=== PATIENT | female | born 1935 | race Hispanic/Latino ===

== ENCOUNTER 2018-08-07 18:44 | Inpatient (IN) | payer MEDICARE ==
[2018-08-07 19:15] LABS: #Eosinphils 0.1 thou/uL (0.0-0.7); #Lymphocytes 0.9 thou/uL (1.20-3.40); #Monocytes 0.5 thou/uL (0.11-0.59); #Neutrophils 5.4 thou/uL (1.40-6.50); %Basophils 0.6 % (0.0-1.0); %Eosinophils 2.2 % (0.0-10.0); %Lymphocytes 12.5 % (21.0-51.0); %Neutrophils 77.8 % (42.0-75.0); Hemoglobin 12.6 g/dL (12.0-16.0); Mean Corpuscular HGB CONC 32.7 g/dL (32.0-36.0); Mean Corpuscular Hemoglobin 32.1 pg (27.0-31.0); Mean Corpuscular Volume 98.2 fL (78.0-98.0); Mean Platelet Volume 7.6 fL (7.4-10.4); Platelet Count 224 thou/uL (130-400); RBC Distribution Width 14.2 % (11.5-14.5); Red Blood Cell (RBC) Count 3.93 mill/uL (4.20-5.40); White Blood Cell (WBC) Count 6.9 thou/uL (4.8-10.8)
[2018-08-07 19:21] LABS: PTT 26.1 SEC (22.9-36.1); Prothrombin Time 13.3 SEC (12.0-14.7)
--- NOTE | 2018-08-07 19:24 | CT ---
EXAM: Brain CT scan Without contrast: HISTORY: Altered mental status COMPARISON: None FINDINGS: Abnormal opaque left optic globe. Atrophy and chronic white matter ischemic change. No focal mass or midline shift. No intra or extra-axial hemorrhage. IMPRESSION: No mass or bleed or other significant acute intracranial process.
[2018-08-07 19:35] LABS: ALT (SGPT) 13 U/L (8-55); AST (SGOT) 14 U/L (5-34); Albumin 3.9 g/dL (3.4-4.8); Alkaline Phosphatase 64 U/L (40-150); Anion Gap 11 mmol/L (10-20); BUN (Urea Nitrogen) 24 mg/dL (9.8-20.1); Bilirubin, Total 0.4 mg/dL (0.2-1.2); Calc. Creatinine Clearance 0 mL/min (70-130); Calcium 9.7 mg/dL (7.8-10.44); Carbon Dioxide 32 mmol/L (23-31); Chloride 103 mmol/L (98-107); Estimated GFR-MDRD 48; Glucose 108 mg/dL (83-110); Potassium 4.2 mmol/L (3.5-5.1); Protein, Total 6.9 g/dL (6.0-8.3); Sodium 142 mmol/L (136-145)
[2018-08-07 20:28] LABS: Bilirubin Negative (Negative); Blood, Urine Negative (Negative); Clarity CLEAR (Clear); Glucose, Urine (Dipstick) Negative (Negative); Leukocyte Trace (Negative); Nitrite Negative (Negative); Protein, Urine (Dipstick) Negative (Neg-Trace); Specific Gravity, Urine 1.019 (1.002-1.036); Urobilinogen 0.2 mg/dL (0.2-1.0); pH, Urine 6.5 (5.0-9.0)
[2018-08-07 20:31] LABS: Bacteria/HPF None Seen HPF (None Seen); Hyaline Casts/LPF 0-3 HYALINE CAST LPF (0-3 Hyaline); Pathc Cast-AUWi Flag 0.67 (0-2.49); Squamous Epithelial 0-3 HPF (0-3); WBC/HPF 0-3 HPF (0-3)
[2018-08-07] MEDS ORDERED: Clopidogrel Bisulfate 75 MG TAB ONE (20:39)
[2018-08-07 22:37] VITALS: BMI 33.6
[2018-08-07] MEDS ORDERED: Labetalol HCl 100 MG/20 ML VIAL SLOW IVP PRN (23:24)
[2018-08-07] MEDS ORDERED: hydrALAZINE 20 MG/ML VIAL SLOW IVP PRN (23:24)
[2018-08-08] MEDS ORDERED: PROVENTIL INHALER 6.7 G (200 INHALATIONS) INH PRN (00:11)
[2018-08-08] MEDS ORDERED: predniSONE 5 MG TAB PO PRN ×2 (00:11→00:45)
--- NOTE | 2018-08-08 01:58 | HP ---
PRIMARY CARE PHYSICIAN: Out-of-town physician, Dr. Trujillo in [place], [place]. CHIEF COMPLAINT: Left-sided weakness, slurred speech, and headache. HISTORY OF PRESENT ILLNESS: Mrs. Bryan is a pleasant 83-year-old female with past medical history of macular degeneration, hypertension, rheumatoid arthritis, asthma, COPD, and history of atrial fibrillation, who had presented to [facility] after she experienced some left upper extremity weakness, slurred speech, left-sided eye drift, and headache earlier today. The patient arrived with family at bedside, she is from [place], [place], and is here visiting family. She also has a history of stroke, aneurysm, and blood clot back in 2005. She has a left eye prosthesis due to macular degeneration. The patient reports having an allergy to aspirin and Coumadin. Therefore, she is not on any anticoagulation at this time. Her initial workup in the emergency department was a CT of brain which showed atrophy and chronic white matter ischemic changes with no focal mass or midline shift, and no significant acute intracranial process noted. She had denied any fever or chills. She had denied any chest pain, palpitations, shortness of breath, abdominal pain, nausea, or vomiting. Since being brought into the ER, the patient's symptoms including left-sided weakness, slurred speech, and left eye drift are improving. She was started on Plavix 75 mg and given an IV fluid bolus of 500 mL. There was a concern for TIA; therefore, the patient will be admitted to the stroke floor for further monitoring and neuro checks. She will undergo further testing in the a.m. REVIEW OF SYSTEMS: All other systems reviewed and found to be negative unless mentioned in the HPI. PAST MEDICAL HISTORY: Significant for macular degeneration, hypertension, rheumatoid arthritis, asthma, history of atrial fibrillation, and COPD. PAST SURGICAL HISTORY: Left eye prosthesis, partial left hip replacement, total hip replacement, and angiogram. PSYCHIATRIC HISTORY: Includes anxiety. SOCIAL HISTORY: The patient is a former tobacco smoker; however, denies any current alcohol, tobacco, or illicit drug use. The patient quit smoking more than 10 years ago. KNOWN ALLERGIES: Aspirin and Coumadin. CURRENT HOME MEDICATIONS: 1. Methotrexate 4 tablets p.o. q.7 days. 2. Folic acid 1 tablet p.o. daily. 3. Metoprolol succinate 25 mg p.o. b.i.d. 4. Furosemide 40 mg p.o. daily. 5. Alendronate 1 tablet p.o. q.7 days. 6. Diltiazem 180 mg p.o. at bedtime. 7. Potassium chloride 20 mEq p.o. b.i.d. 8. Albuterol sulfate 1 puff inhalation daily p.r.n. shortness of breath. 9. Ketotifen 5 ml ophthalmic each eye b.i.d. 10. Prednisone 5 mg p.o. daily p.r.n. inflammation. PHYSICAL EXAMINATION: VITAL SIGNS: BP 168/83, pulse 94, respirations 18, temperature 97.6 degrees Fahrenheit, and O2 saturation 96% on room air. GENERAL: The patient is awake, alert, and oriented x3. No acute distress noted. She is lying comfortably in bed with family at bedside. HEENT: Atraumatic, normocephalic. 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 Moist mucous membranes noted. NECK: Soft and supple. No JVD. Trachea midline. CARDIOVASCULAR: Positive S1 and S2. Regular rate and rhythm. No murmur auscultated. RESPIRATORY: Clear to auscultation bilaterally. No wheezes, rales, or rhonchi. ABDOMEN: Soft and nontender. Bowel sounds present. MUSCULOSKELETAL: Strength 5+ on the right side; however, 4+ noted on the left upper extremity. Moves all extremities equal. Pedal and radial pulses are palpable and equal bilaterally. No edema noted. NEUROLOGIC: Cranial nerves II through XII grossly intact. Slight slurred speech noted along with dysphagia. SKIN: Warm, dry, and intact. No lesions. No ulcerations noted. PSYCHIATRIC: Good mood and affect. LABORATORY DATA: WBC 6.9, RBC 3.93, hemoglobin 12.6, platelets 224. Sodium 142, potassium 4.2, anion gap 11, BUN 24, creatinine 1.08, estimated GFR 48. Urinalysis shows trace leukocyte esterase, otherwise unremarkable. DIAGNOSTIC IMAGING: CT of brain without contrast showed atrophy and chronic white matter ischemic changes with no focal mass or midline shift. No significant acute intracranial process noted. ASSESSMENT AND PLAN: 1. Transient ischemic attack/cerebrovascular accident rule out. The patient will undergo MRI without contrast, carotid Doppler, and echocardiogram in the morning. Neurology Services, Dr. Patel, will be consulted for further evaluation. The patient will be started on high dose statin and Plavix at this time. The patient has an allergy to aspirin; therefore, this will not be given. Further management pending her workup. 2. History of atrial fibrillation. The patient will be continued on her home regimen. 3. History of hypertension. Continue on the patient's home regimen. Add IV hydralazine and IV labetalol as needed for an elevated blood pressure. 4. History of rheumatoid arthritis. The patient currently is asymptomatic at this time, however, will be continued on her home regimen. 5. Dysphagia. The patient will be made n.p.o. at this time and Speech Therapy will be consulted for further evaluation prior to starting on diet. 6. Left-sided weakness, likely secondary to #1. PT and OT services will be consulted for further evaluation. 7. Deep venous thrombosis and gastrointestinal prophylaxis. 8. Code status: DNAR. 9. Surrogate decision maker will be the patient's daughter, Gayle Mcleod, she is the direct power of director of archives as well. The patient wishes to be DNR at this time. DISPOSITION: Pending further workup and clinical findings. The patient is from out of town. Therefore, she will likely need close outpatient followup when she returns home to [place], [place]. Job ID: [id number]
[2018-08-08] MEDS: Acetaminophen 650 MG Suppository PR PRN ×3 (03:47→17:20)
[2018-08-08 05:21] LABS: #Eosinphils 0.1 thou/uL (0.0-0.7); #Lymphocytes 0.6 thou/uL (1.20-3.40); #Monocytes 0.5 thou/uL (0.11-0.59); #Neutrophils 5.9 thou/uL (1.40-6.50); %Basophils 0.2 % (0.0-1.0); %Eosinophils 1.3 % (0.0-10.0); %Lymphocytes 8.6 % (21.0-51.0); %Monocytes 6.4 % (0.0-10.0); %Neutrophils 83.5 % (42.0-75.0); Hemoglobin 11.5 g/dL (12.0-16.0); Mean Corpuscular HGB CONC 33.1 g/dL (32.0-36.0); Mean Corpuscular Hemoglobin 32.6 pg (27.0-31.0); Mean Corpuscular Volume 98.4 fL (78.0-98.0); Mean Platelet Volume 7.4 fL (7.4-10.4); Platelet Count 202 thou/uL (130-400); RBC Distribution Width 13.8 % (11.5-14.5); Red Blood Cell (RBC) Count 3.53 mill/uL (4.20-5.40)
[2018-08-08 05:41] LABS: Anion Gap 10 mmol/L (10-20); BUN (Urea Nitrogen) 18 mg/dL (9.8-20.1); Calc. Creatinine Clearance 57 mL/min (70-130); Calcium 9.1 mg/dL (7.8-10.44); Carbon Dioxide 29 mmol/L (23-31); Cardiac Risk 3.4 (Less than 4.5); Chloride 105 mmol/L (98-107); Cholesterol 179 mg/dl (< 200 Desired); Estimated GFR-MDRD 67; Glucose 103 mg/dL (83-110); HDL Cholesterol 53 mg/dL (>60 Neg Risk); LDL Cholesterol, Calculated 114 mg/dL; Potassium 3.8 mmol/L (3.5-5.1); Sodium 140 mmol/L (136-145); Triglycerides 59 mg/dL (Less than 150)
[2018-08-08] MEDS ORDERED: Potassium Chloride 20 MEQ TAB PO SCH (08:00)
--- NOTE | 2018-08-08 08:23 | ULT ---
Carotid duplex sonogram HISTORY: TIA. Vascular disease. FINDINGS: Prominent plaque. Color and spectral Doppler evaluation, peak systolic velocity of 80 cm/s, and IC to CC ratio of 0.9 suggest no hemodynamically significant stenosis within the extracranial right ICA. Antegrade flow within the vertebral artery. Left: Prominent plaque. Color and spectral Doppler evaluation, peak systolic velocity of 71 cm/s, and IC to CC ratio of 0.8 suggest no hemodynamically significant stenosis within the extracranial left ICA. Antegrade flow within the vertebral artery. IMPRESSION: Atherosclerosis. No sonographic evidence of significant extracranial ICA stenosis.
[2018-08-08] MEDS ORDERED: Alendronate Sodium 70 mg Tablet PO SCH (09:00)
[2018-08-08] MEDS ORDERED: Furosemide 40 MG TAB PO SCH (09:00)
[2018-08-08] MEDS: Clopidogrel Bisulfate 75 MG TAB PO SCH (09:25)
[2018-08-08] MEDS: Ketotifen Fumarate 0.025% Ophth Soln 5 ml Bottle EA EYE SCH ×2 (09:25→20:27)
[2018-08-08] MEDS ORDERED: ISOVUE-370 76%-LOCM 1 ML ONE (10:37)
--- NOTE | 2018-08-08 13:49 | MRI ---
MRI BRAIN WITHOUT CONTRAST: INDICATIONS: Altered mental status. FINDINGS: There is a large region of restricted effusion involving the right MCA territory, compatible with a r ecent infarction. There is no evidence of hemorrhagic transformation. The finding is superimposed u lorenzo moderate chronic ischemic disease. There is moderate global atrophy with compensatory dilatation of the ventricular system. There is diffuse low signal of the left lobe, which suggests an ocular p rosthesis. Correlate with history. IMPRESSION: Large recent right middle cerebral artery territory infarction, superimposed upon moderate chronic is chemic disease. POS: OFF
[2018-08-08] MEDS ORDERED: Dextrose 5 % And 0.9 % NaCl 1,000 ML IV SCH (15:15)
--- NOTE | 2018-08-08 15:17 | PDOC.PN ---
- Subjective Encounter Start Date: 08/08/18 Encounter Start Time: 14:14 Subjective: Patient initially unresponsive except with pain stimuli, once alert -: able to attempt to follow commands but unable to complete them -: unable to speak, unable to open her mouth or eyes. Repeat NIH has confirmed further deterioration. NIH 15 at present, was at 9 this morning. Patient reports a WHEELER. Unable to assess left pupil as had prosthesis. MRI has confirmed large infarct to right MCA distribution. Assessed by Dr. Patel. Patient currently on Plavis and at risk for bleeding. Code Stroke deferred, communicated to ER for stat CTA. CT to assess for bleeding, if negative, proceed with CTA. To be discussed with Dr. John however it has been close to 24 hrs from initial symptoms (17:30 last night). Patient likely to experience worsening edema, which may also be contributing to symptoms. Currently with uncontrollable twitching to left lower extremity. Family at bedsite and aware of MRI results and plan at present. - Objective Resuscitation Status - Order Detail: 08/08/18 00:34 Resuscitation Status Routine Co-Sign Provider: Resuscitation Status: DNAR: NO Resuscitation Discussed with: Family Vital Signs & Weight: Vital Signs (12 hours) Temp Pulse Pulse Pulse Resp BP BP 08/08/18 12:00 98.5 F 95 20 08/08/18 10:16 111 H 137/74 08/08/18 10:00 99 111 H 143/68 H 137/74 08/08/18 08:30 97.7 F 95 16 08/08/18 03:49 98.0 F 84 16 BP Pulse Ox Pulse Ox 08/08/18 12:00 143/67 H 98 08/08/18 10:16 93 L 08/08/18 10:00 08/08/18 08:30 137/68 93 L 08/08/18 03:49 132/67 98 Weight Weight 155 lb 9.6 oz I&O: 08/07/18 08/08/18 08/09/18 06:59 06:59 06:59 Output Total 0 Balance 0 Result Diagrams: 08/08/18 05:12 08/08/18 05:12 Phys Exam - Physical Examination Patient responsive to painful stimuli Patient responding occasional with grunt right pupil sluggish. left eye is a prosthesis Unable to asses EOM movement Cardiovascular: RRR Gastrointestinal: soft, non-tender, no distention Musculoskeletal: no edema mechanical SCDs removed, patient continued with left lower leg twitching. able to SLR, approximately 2 inches off bed on right, attemps on left Deviation from normal: NIH 15 (was 9 this morning), unable to assess facial movements unable to move leg against resistance, attempts spring former strength bilaterally Dx/Plan (1) Cerebral infarct Code(s): I63.9 - CEREBRAL INFARCTION, UNSPECIFIED Status: Acute Qualifiers: Precerebral and cerebral artery: middle cerebral artery Laterality of affected vessel: right Plan: Confirmed on MRI. Patient on Plavix, at risk for cerebral edema as well as bleed. NIH 15, was 9 this morning. STAT CTA requested, CT first to confirm if bleed, if negative, then proceed with CTA to assess for thrombosis, discuss with Dr. John. Hx of similar symptoms and has received thrombolytics in the past early 1999s. (2) Hypertension Code(s): I10 - ESSENTIAL (PRIMARY) HYPERTENSION Status: Acute Qualifiers: Hypertension type: essential hypertension Qualified Code(s): I10 - Essential (primary) hypertension (3) High cholesterol Code(s): E78.00 - PURE HYPERCHOLESTEROLEMIA, UNSPECIFIED Status: Acute - Plan cont current plan of care Patient NPO. -: Have converted lasix to IV. -: Discontinue PO meds. -: D5NS IV at 55 cc/hr. -: Dr. Falk aware and in agreement with plan as above. * .
--- NOTE | 2018-08-08 15:52 | CT ---
EXAM: CTA head without and with contrast HISTORY: Right MCA distribution stroke COMPARISON: MRI brain 08/08/2018 TECHNIQUE: Multiple contiguous axial images were obtained and a CTA of the head without and with contrast. 3-D sagittal and coronal MIP reformats were performed. FINDINGS: There are scattered hypodensities in the subcortical and periventricular white matter consistent with small vessel ischemic disease. There is ongoing loss of pfeiffer-white matter differentiation in the right MCA distribution consistent with an ongoing infarction.. There is no evidence of hydrocephalus, intracranial hemorrhage, or extra-axial fluid collection. Right intracranial internal carotid artery: Patent without narrowing or occlusion Right anterior cerebral artery: Patent without narrowing or occlusion Right middle cerebral artery: There is an area of occlusion involving the M1 segment. Distal collater al vessels are seen in the MCA distribution. Left intracranial internal carotid artery: Patent without narrowing or occlusion Left anterior cerebral artery: Patent without narrowing or occlusion Left middle cerebral artery: Patent without narrowing or occlusion No aneurysmal dilatation is seen in the anterior circulation. Right vertebral artery: Patent without narrowing or occlusion Left vertebral artery: Patent without narrowing or occlusion Basilar artery: Patent without narrowing or occlusion The posterior cerebral arteries and cerebellar arteries are patent without narrowing or occlusion. No aneurysmal dilatation is seen in the posterior circulation. IMPRESSION: Ongoing right MCA distribution secondary to occlusion of the M1 segment of the right middle cerebral artery.
[2018-08-08] MEDS ORDERED: Atorvastatin Calcium 40 MG TAB PO SCH (21:00)
[2018-08-09] MEDS: Acetaminophen 650 MG Suppository PR PRN ×3 (05:03→23:50)
[2018-08-09 05:27] LABS: #Eosinphils 0.1 thou/uL (0.0-0.7); #Lymphocytes 0.6 thou/uL (1.20-3.40); #Monocytes 0.5 thou/uL (0.11-0.59); #Neutrophils 5.1 thou/uL (1.40-6.50); %Eosinophils 1.4 % (0.0-10.0); %Monocytes 7.9 % (0.0-10.0); %Neutrophils 81.7 % (42.0-75.0); Hemoglobin 12.1 g/dL (12.0-16.0); Mean Corpuscular HGB CONC 31.3 g/dL (32.0-36.0); Mean Corpuscular Hemoglobin 30.9 pg (27.0-31.0); Mean Corpuscular Volume 98.6 fL (78.0-98.0); Mean Platelet Volume 7.6 fL (7.4-10.4); Platelet Count 229 thou/uL (130-400); RBC Distribution Width 14.2 % (11.5-14.5); Red Blood Cell (RBC) Count 3.92 mill/uL (4.20-5.40); White Blood Cell (WBC) Count 6.2 thou/uL (4.8-10.8)
[2018-08-09 05:39] LABS: Anion Gap 11 mmol/L (10-20); BUN (Urea Nitrogen) 15 mg/dL (9.8-20.1); Calc. Creatinine Clearance 57 mL/min (70-130); Calcium 9.2 mg/dL (7.8-10.44); Carbon Dioxide 30 mmol/L (23-31); Chloride 104 mmol/L (98-107); Estimated GFR-MDRD 68; Glucose 102 mg/dL (83-110); Potassium 3.5 mmol/L (3.5-5.1); Sodium 141 mmol/L (136-145)
[2018-08-09] MEDS ORDERED: Ondansetron PF 4 MG/2 ML Vial IVP PRN (07:23)
[2018-08-09] MEDS ORDERED: Sodium Chloride 0.65% Nasal 44 ML BOT EA NARE PRN (07:23)
[2018-08-09] MEDS ORDERED: Bisacodyl 10 MG SUPP PR PRN (07:23)
[2018-08-09] MEDS ORDERED: Diabetic Tussin 200 MG/10 ML UDCUP PO PRN (07:23)
[2018-08-09] MEDS ORDERED: Artificial Tears 18 DROP/0.9 ML EA EYE PRN (07:23)
[2018-08-09] MEDS ORDERED: Cepastat Lozenges 1 LOZ PO PRN (07:23)
[2018-08-09] MEDS ORDERED: Eucerin (Mineral Oil/Petrolatum,White) 30 gm Jar TOP PRN (07:23)
[2018-08-09] MEDS ORDERED: Loperamide HCl 2 MG CAP PO PRN (07:23)
[2018-08-09] MEDS ORDERED: Ondansetron ODT 4 MG TAB SL PRN (07:23)
[2018-08-09] MEDS ORDERED: Calcium Carbonate 500 MG ChewTAB PO PRN (07:23)
[2018-08-09] MEDS ORDERED: Senokot S 8.6-50 MG TAB PO PRN (07:23)
[2018-08-09] MEDS ORDERED: Loratadine 10 MG TAB PO PRN (07:23)
[2018-08-09] MEDS ORDERED: hydrALAZINE 20 MG/ML VIAL SLOW IVP PRN (07:26)
[2018-08-09] MEDS ORDERED: Labetalol HCl 100 MG/20 ML VIAL SLOW IVP PRN (07:26)
--- NOTE | 2018-08-09 09:28 | PDOC.PN ---
- Subjective Encounter Start Date: 08/09/18 Encounter Start Time: 07:10 -: old records requested/rev Patient seen and examined. No overnight events - Objective Resuscitation Status - Order Detail: 08/08/18 00:34 Resuscitation Status Routine Co-Sign Provider: Resuscitation Status: DNAR: NO Resuscitation Discussed with: Family MAR Reviewed: Yes Vital Signs & Weight: Vital Signs (12 hours) Temp Pulse Resp BP Pulse Ox 08/09/18 07:00 97.5 F L 98 20 144/74 H 95 08/09/18 03:55 97.4 F L 93 16 144/80 H 93 L 08/08/18 23:57 97.9 F 90 16 129/72 97 Weight Weight 155 lb 9.6 oz I&O: 08/08/18 08/09/18 08/10/18 06:59 06:59 06:59 Intake Total 975 Output Total 0 150 Balance 0 825 Result Diagrams: 08/09/18 05:00 08/09/18 05:00 Additional Labs: Accuchecks 08/08/18 15:21 POC Glucose 104 Radiology Reviewed by me: Yes EKG Reviewed by me: Yes Phys Exam - Physical Examination Constitutional: NAD HEENT: PERRLA, moist MMs, sclera anicteric Neck: no JVD, supple Respiratory: no wheezing, no rales, no rhonchi Cardiovascular: RRR, no significant murmur, no rub Gastrointestinal: soft, non-tender, no distention, positive bowel sounds Musculoskeletal: no edema, pulses present left side weakness Lymphatic: no nodes Psychiatric: normal affect Skin: no rash, normal turgor Dx/Plan (1) Acute right arterial ischemic stroke, MCA (middle cerebral artery) Code(s): I63.511 - CEREB INFRC D/T UNSP OCCLS OR STENOS OF RIGHT MID CEREB ART Status: Acute (2) COPD (chronic obstructive pulmonary disease) Status: Chronic (3) Carotid atherosclerosis Code(s): I65.29 - OCCLUSION AND STENOSIS OF UNSPECIFIED CAROTID ARTERY Status : Chronic (4) Dyslipidemia Code(s): E78.5 - HYPERLIPIDEMIA, UNSPECIFIED Status: Chronic (5) Hypertension Code(s): I10 - ESSENTIAL (PRIMARY) HYPERTENSION Status: Chronic (6) Obesity (BMI 30.0-34.9) Code(s): E66.9 - OBESITY, UNSPECIFIED Status: Chronic (7) Rheumatoid arthritis Code(s): M06.9 - RHEUMATOID ARTHRITIS, UNSPECIFIED Status: Chronic - Plan cont current plan of care, plan discussed w/ family, PT/OT, speech therapy, DVT proph w/lovenox, DVT proph w/SCDs * add lipitor * continue plavix * pt is NPO per speech, I discussed with family about possible need of PEG * medication reviewed as below * symptomatic treatment * stroke team evaluation. Review of Systems - Review of Systems Other: unable to review as pt is not coherent and aphasia - Medications/Allergies Allergies/Adverse Reactions: Allergies Allergy/AdvReac Type Severity Reaction Status Date / Time aspirin Allergy Verified 08/07/18 22:23 warfarin [From Coumadin] Allergy Verified 08/07/18 22:23 Medications: Current Medications Acetaminophen (Tylenol) 650 mg NM Q6H PRN PRN Reason: Headache/Fever or Mild Pain Last Admin: 08/09/18 05:03 Dose: 650 mg Acetaminophen (Tylenol) 650 mg PO Q6H PRN PRN Reason: Mild Pain (1-3) Albuterol Sulfate (Proventil Hfa) 1 puff INH DAILYPRN PRN PRN Reason: Wheezing Albuterol/Ipratropium (Duoneb) 3 ml NEB Q4H PRN PRN Reason: SOB &/or Wheezing Artificial Tears (Tears Naturale) 2 drop EA EYE PRN PRN PRN Reason: Dry Eyes Atorvastatin Calcium (Lipitor) 40 mg PO HS ROSS Bisacodyl (Dulcolax) 10 mg NM DAILYPRN PRN PRN Reason: Constipation Calcium Carbonate (Tums) 1,000 mg PO Q4H PRN PRN Reason: Heartburn or Indigestion Clopidogrel Bisulfate (Plavix) 75 mg PO DAILY ROSS Last Admin: 08/08/18 09:25 Dose: 75 mg Diltiazem HCl (Cardizem) 30 mg PO ACHS ROSS Enoxaparin Sodium (Lovenox) 40 mg SC 0900 ROSS Folic Acid (Folvite) 1 mg PO DAILY ROSS Furosemide (Lasix) 40 mg SLOW IVP DAILY ROSS Guaifenesin (Robitussin Sf) 200 mg PO Q4H PRN PRN Reason: Cough Hydralazine HCl (Apresoline) 10 mg SLOW IVP Q4H PRN PRN Reason: SBP Greater Than 180 Sodium Chloride (Normal Saline 0.9%) 1,000 mls @ 50 mls/hr IV .Q20H [facility] Ketotifen Fumarate (Zaditor 0.025% Ophth Soln) 1 drop EA EYE BID [facility] Last Admin: 08/08/18 20:27 Dose: 1 drp Labetalol HCl (Normodyne) 20 mg SLOW IVP Q1H PRN PRN Reason: SBP Greater Than 180 Loperamide HCl (Imodium) 2 mg PO PRN PRN PRN Reason: Diarrhea/Loose Stools Loratadine (Claritin) 10 mg PO DAILYPRN PRN PRN Reason: Sinus Symptoms Metoprolol Tartrate (Lopressor) 25 mg PO BID [facility] Mineral Oil/White Petrolatum (Eucerin Cream) 0 gm TOP BIDPRN PRN PRN Reason: Dry Skin Ondansetron HCl (Zofran Odt) 4 mg SL Q6H PRN PRN Reason: Nausea/Vomiting Ondansetron HCl (Zofran) 4 mg IVP Q6H PRN PRN Reason: Nausea/Vomiting Senna/Docusate Sodium (Senokot S) 2 tab PO BID PRN PRN Reason: Constipation Sodium Chloride (Flush - Normal Saline) 10 ml IVF PRN PRN PRN Reason: Saline Flush Sodium Chloride ([place] Nasal [place] 0.65%) 0 ml EA NARE QIDPRN PRN PRN Reason: Nasal Congestion Throat Lozenges (Cepastat Lozenges) 1 chriss PO Q2H PRN PRN Reason: Sore Throat
[2018-08-09] MEDS: Furosemide 40 MG/4 ML VIAL SLOW IVP SCH (11:04)
[2018-08-09] MEDS: Enoxaparin Sodium 40 MG/0.4 ML SYRINGE SC SCH (11:04)
[2018-08-09] MEDS: Sodium Chloride 0.9% 1,000 ML IV SCH (11:04)
[2018-08-09] MEDS: Ketotifen Fumarate 0.025% Ophth Soln 5 ml Bottle EA EYE SCH ×2 (11:05→23:07)
[2018-08-09] MEDS: Metoprolol Tartrate 25 MG TAB PO SCH ×2 (11:06→23:12)
[2018-08-09] MEDS: Clopidogrel Bisulfate 75 MG TAB PO SCH (11:06)
[2018-08-09] MEDS: Folic Acid 1 MG TAB PO SCH (11:06)
--- NOTE | 2018-08-09 13:48 | PQF ---
JAIRO JANE, SUSAN YOON MD [id number] [address] [place] [address] [id number] CLINICAL DOCUMENTATION IMPROVEMENT CLARIFICATION FORM: ICD-10 Updated PLEASE DO AN ADDENDUM TO THE PROGRESS NOTE WITH ANY DOCUMENTATION UPDATES OR ADDITIONS AND CARRY THROUGH TO DC SUMMARY. THANK YOU. DATE: 08/09/18 ATTN: Dr. Reyes Please exercise your independent, professional judgment in responding to the clarification form. Clinical indicators are provided on the bottom of this form for your review Please check appropriate box(s): [ x ] Hemiplegia Specify: [ ] Non dominant side [ x ] Dominant side Status: [ x] Complete [ ] Incomplete [ ] Left sided weakness due to stroke Specify: [ ] Non dominant side [ ] Dominant side [ ] Other diagnosis [ ] Unable to determine In addition, please specify: Present on Admission (POA): [ x ] Yes [ ] No [ ] Unable to determine CLINICAL INDICATORS - SIGNS / SYMPTOMS / LABS 08/09 IM: LEFT SIDED WEAKNESS RISK FACTORS ACUTE MCA STROKE- 08/09 IM TREATMENT: PT 08/07 orders OT 08/07 orders CMO & PRESIDENT 08/07 orders Thank you, Yumi Colvin RN, CCDS (This form is maintained as a part of the permanent medical record) 2015 Sold, [facility] [employer]. All Rights Reserved Yumi Colvin RN, BSN, CCDS [email or web address]
--- NOTE | 2018-08-09 17:36 | CON ---
DATE OF CONSULTATION: 08/09/2018 CONSULTING PHYSICIAN: Hospitalist Service. IMPRESSION: 1. Right middle cerebral artery stroke with minimal deficits. 2. History of mild dementia. 3. Hypertension. 4. Rheumatoid arthritis. 5. Chronic obstructive pulmonary disease. 6. History of atrial fibrillation. 7. History of intracerebral hemorrhage secondary to Coumadin. PLAN: 1. PEG tube placement. 2. Plavix 75 mg per day. 3. senior care rehab. HISTORY OF PRESENT ILLNESS: Ms. Bryan is an 83-year-old female, who was brought in with acute neurologic symptoms of left-sided weakness. Initial CT scan only showed small vessel ischemic changes. Her carotid ultrasound did not show any extracranial stenosis. MRI subsequently revealed patchy areas of ischemia involving the right MCA territory. She has a past history of aspirin allergy and her swallow function has been poor and they have not been able to administer any antiplatelet therapy or nutrition. The family is willing to consider PEG tube placement. PAST MEDICAL HISTORY: As listed above. ALLERGIES: COUMADIN AND ASPIRIN. SOCIAL HISTORY: No tobacco or alcohol use. She lives at home with the family. She got around the house on a walker. MEDICATIONS: Medication list was reviewed. FAMILY HISTORY: Noncontributory. REVIEW OF SYSTEMS: Not obtainable secondary to the patient's ability to answer questions appropriately due to her level of alertness. PHYSICAL EXAMINATION: GENERAL: She is an elderly lady, lying in bed, in no apparent distress. HEENT: Pupils are equal and reactive. Conjunctivae are clear. Oropharynx clear. NECK: No lymphadenopathy noted. EXTREMITIES: No cyanosis or edema. NEUROLOGIC: She was awake and cooperative to simple commands. Her face appeared to be symmetric. I can get good shipyard painter helper strength bilaterally. She had antigravity strength in her legs. Sensation was intact to touch. No abnormal movements were seen. IMAGING: Reviewed. SUMMARY: This is a frail elderly lady with acute right MCA stroke. She is recovering well. Hopefully, her swallow function will improve in short order, but PEG tube placement seems necessary at this point. Job ID: [id number]
[2018-08-09] MEDS: Atorvastatin Calcium 40 MG TAB PO SCH (23:12)
[2018-08-10] MEDS: Sodium Chloride 0.9% 1,000 ML IV SCH (03:55)
[2018-08-10 05:10] LABS: #Eosinphils 0.2 thou/uL (0.0-0.7); #Lymphocytes 0.7 thou/uL (1.20-3.40); #Monocytes 0.6 thou/uL (0.11-0.59); #Neutrophils 4.7 thou/uL (1.40-6.50); %Basophils 0.1 % (0.0-1.0); %Eosinophils 2.6 % (0.0-10.0); %Lymphocytes 11.7 % (21.0-51.0); %Neutrophils 75.6 % (42.0-75.0); Hemoglobin 12.5 g/dL (12.0-16.0); Mean Corpuscular HGB CONC 33.3 g/dL (32.0-36.0); Mean Corpuscular Hemoglobin 32.8 pg (27.0-31.0); Mean Corpuscular Volume 98.7 fL (78.0-98.0); Mean Platelet Volume 7.5 fL (7.4-10.4); Platelet Count 215 thou/uL (130-400); Red Blood Cell (RBC) Count 3.79 mill/uL (4.20-5.40); White Blood Cell (WBC) Count 6.2 thou/uL (4.8-10.8)
[2018-08-10 05:21] LABS: Anion Gap 12 mmol/L (10-20); BUN (Urea Nitrogen) 20 mg/dL (9.8-20.1); Calc. Creatinine Clearance 58 mL/min (70-130); Calcium 9.1 mg/dL (7.8-10.44); Carbon Dioxide 29 mmol/L (23-31); Chloride 106 mmol/L (98-107); Estimated GFR-MDRD 69; Glucose 76 mg/dL (83-110); Potassium 3.4 mmol/L (3.5-5.1); Sodium 144 mmol/L (136-145)
[2018-08-10] MEDS: Acetaminophen 650 MG Suppository PR PRN (08:53)
[2018-08-10] MEDS: Enoxaparin Sodium 40 MG/0.4 ML SYRINGE SC SCH (08:58)
[2018-08-10] MEDS: Furosemide 40 MG/4 ML VIAL SLOW IVP SCH (08:59)
[2018-08-10] MEDS: Ketotifen Fumarate 0.025% Ophth Soln 5 ml Bottle EA EYE SCH ×2 (08:59→21:30)
--- NOTE | 2018-08-10 09:58 | PDOC.PN ---
- Subjective Encounter Start Date: 08/10/18 Encounter Start Time: 08:30 Patient seen and examined. pt is overall doing better, No overnight events - Objective Resuscitation Status - Order Detail: 08/08/18 00:34 Resuscitation Status Routine Co-Sign Provider: Resuscitation Status: DNAR: NO Resuscitation Discussed with: Family MAR Reviewed: Yes Vital Signs & Weight: Vital Signs (12 hours) Temp Pulse Pulse Resp BP BP Pulse Ox 08/10/18 08:30 86 132/65 08/10/18 07:50 98 08/10/18 07:34 97.5 F L 94 16 140/82 98 08/10/18 04:02 97.6 F 87 16 122/63 98 08/09/18 23:00 99 F 100 16 131/78 93 L Pulse Ox 08/10/18 08:30 98 08/10/18 07:50 08/10/18 07:34 08/10/18 04:02 08/09/18 23:00 Weight Admit Weight 155 lb 9.6 oz Weight 155 lb 9.6 oz I&O: 08/09/18 08/10/18 08/11/18 06:59 06:59 06:59 Intake Total 975 1025 Output Total 150 1100 Balance 825 -75 Result Diagrams: 08/10/18 04:32 08/10/18 04:32 EKG Reviewed by me: Yes Phys Exam - Physical Examination Constitutional: NAD HEENT: PERRLA, moist MMs, sclera anicteric Neck: no JVD, supple Respiratory: no wheezing, no rales, no rhonchi Cardiovascular: RRR, no significant murmur, no rub Gastrointestinal: soft, non-tender, no distention, positive bowel sounds Musculoskeletal: no edema, pulses present left side weakness, aphasia Lymphatic: no nodes Psychiatric: normal affect, A&O x 3 Skin: no rash, normal turgor Dx/Plan (1) Acute right arterial ischemic stroke, MCA (middle cerebral artery) Code(s): I63.511 - CEREB INFRC D/T UNSP OCCLS OR STENOS OF RIGHT MID CEREB ART Status: Acute (2) COPD (chronic obstructive pulmonary disease) Status: Chronic (3) Carotid atherosclerosis Code(s): I65.29 - OCCLUSION AND STENOSIS OF UNSPECIFIED CAROTID ARTERY Status : Chronic (4) Dyslipidemia Code(s): E78.5 - HYPERLIPIDEMIA, UNSPECIFIED Status: Chronic (5) Hypertension Code(s): I10 - ESSENTIAL (PRIMARY) HYPERTENSION Status: Chronic (6) Obesity (BMI 30.0-34.9) Code(s): E66.9 - OBESITY, UNSPECIFIED Status: Chronic (7) Rheumatoid arthritis Code(s): M06.9 - RHEUMATOID ARTHRITIS, UNSPECIFIED Status: Chronic - Plan cont current plan of care, plan discussed w/ family, PT/OT, speech therapy, DVT proph w/lovenox * today MBS with speech therapy * will need eventual rehab on discharge * continue stroke team evaluation * medication reviewed as below * symptomatic treatment Review of Systems - Review of Systems ENT: negative: Ear Pain, Ear Discharge, Nose Pain, Nose Discharge, Nose Congestion, Mouth Pain, Mouth Swelling, Throat Pain, Throat Swelling, Other Respiratory: negative: Cough, Dry, Shortness of Breath, Hemoptysis, SOB with Excertion, Pleuritic Pain, Sputum, Wheezing Cardiovascular: negative: chest pain, palpitations, orthopnea, paroxysmal nocturnal dyspnea, edema, light headedness, other Gastrointestinal: negative: Nausea, Vomiting, Abdominal Pain, Diarrhea, Constipation, Melena, Hematochezia, Other Genitourinary: negative: Dysuria, Frequency, Incontinence, Hematuria, Retention , Other Musculoskeletal: negative: Neck Pain, Shoulder Pain, Arm Pain, Back Pain, Hand Pain, Leg Pain, Foot Pain, Other - Medications/Allergies Allergies/Adverse Reactions: Allergies Allergy/AdvReac Type Severity Reaction Status Date / Time aspirin Allergy Verified 08/07/18 22:23 warfarin [From Coumadin] Allergy Verified 08/07/18 22:23 Medications: Current Medications Acetaminophen (Tylenol) [address] Q6H PRN PRN Reason: Headache/Fever or Mild Pain Last Admin: 08/10/18 08:53 Dose: 650 mg Acetaminophen (Tylenol) 650 mg PO Q6H PRN PRN Reason: Mild Pain (1-3) Albuterol Sulfate (Proventil Hfa) 1 puff INH DAILYPRN PRN PRN Reason: Wheezing Albuterol/Ipratropium (Duoneb) 3 ml NEB Q4H PRN PRN Reason: SOB &/or Wheezing Artificial Tears (Tears Naturale) 2 drop EA EYE PRN PRN PRN Reason: Dry Eyes Atorvastatin Calcium (Lipitor) 40 mg PO HS ROSS Last Admin: 08/09/18 23:12 Dose: Not Given Bisacodyl (Dulcolax) [address] DAILYPRN PRN PRN Reason: Constipation Calcium Carbonate (Tums) 1,000 mg PO Q4H PRN PRN Reason: Heartburn or Indigestion Clopidogrel Bisulfate (Plavix) 75 mg PO DAILY [facility] Last Admin: 08/09/18 11:06 Dose: Not Given Diltiazem HCl (Cardizem) 30 mg PO ACHS [facility] Last Admin: 08/09/18 23:12 Dose: Not Given Enoxaparin Sodium (Lovenox) 40 mg SC 0900 [facility] Last Admin: 08/10/18 08:58 Dose: 40 mg Folic Acid (Folvite) 1 mg PO DAILY [facility] Last Admin: 08/09/18 11:06 Dose: Not Given Furosemide (Lasix) 40 mg SLOW IVP DAILY [facility] Last Admin: 08/10/18 08:59 Dose: 40 mg Guaifenesin (Robitussin Sf) 200 mg PO Q4H PRN PRN Reason: Cough Hydralazine HCl (Apresoline) 10 mg SLOW IVP Q4H PRN PRN Reason: SBP Greater Than 180 Sodium Chloride (Normal Saline 0.9%) 1,000 mls @ 50 mls/hr IV .Q20H [facility] Last Admin: 08/10/18 03:55 Dose: 1,000 mls Ketotifen Fumarate (Zaditor 0.025% Ophth Soln) 1 drop EA EYE BID [facility] Last Admin: 08/10/18 08:59 Dose: 1 drp Labetalol HCl (Normodyne) 20 mg SLOW IVP Q1H PRN PRN Reason: SBP Greater Than 180 Loperamide HCl (Imodium) 2 mg PO PRN PRN PRN Reason: Diarrhea/Loose Stools Loratadine (Claritin) 10 mg PO DAILYPRN PRN PRN Reason: Sinus Symptoms Metoprolol Tartrate (Lopressor) 25 mg PO BID [facility] Last Admin: 08/09/18 23:12 Dose: Not Given Mineral Oil/White Petrolatum (Eucerin Cream) 0 gm TOP BIDPRN PRN PRN Reason: Dry Skin Ondansetron HCl (Zofran Odt) 4 mg SL Q6H PRN PRN Reason: Nausea/Vomiting Ondansetron HCl (Zofran) 4 mg IVP Q6H PRN PRN Reason: Nausea/Vomiting Senna/Docusate Sodium (Senokot S) 2 tab PO BID PRN PRN Reason: Constipation Sodium Chloride (Flush - Normal Saline) 10 ml IVF PRN PRN PRN Reason: Saline Flush Sodium Chloride ([place] Nasal [place] 0.65%) 0 ml EA NARE QIDPRN PRN PRN Reason: Nasal Congestion Throat Lozenges (Cepastat Lozenges) 1 chriss PO Q2H PRN PRN Reason: Sore Throat
--- NOTE | 2018-08-10 14:24 | RAD ---
Modified Barium Swallow CLINICAL HISTORY: Dysphagia following cerebral infarction Dysphagia unspecified Feeding difficulties FINDINGS: Examination is performed with real-time fluoroscopy. Varying consistencies of barium contra st were administered to the patient, and ingested orally. There is delayed swallowing mechanism, with evidence of recurrent laryngeal penetration. No tracheal aspiration. IMPRESSION: Recurrent episodes of deep laryngeal penetration. Reference speech pathology report for further details.
[2018-08-10] MEDS: Metoprolol Tartrate 25 MG TAB PO SCH ×2 (15:07→21:30)
[2018-08-10] MEDS: Folic Acid 1 MG TAB PO SCH (15:07)
[2018-08-10] MEDS: Clopidogrel Bisulfate 75 MG TAB PO SCH (15:07)
[2018-08-10] MEDS: Acetaminophen 325 MG TAB PO PRN (17:13)
[2018-08-10] MEDS: Atorvastatin Calcium 40 MG TAB PO SCH (21:30)
[2018-08-11] MEDS: Sodium Chloride 0.9% 1,000 ML IV SCH ×2 (01:10→21:26)
--- NOTE | 2018-08-11 05:58 | PDOC.EVN ---
Event Note - Event Note Event Note: RN called - Bladder scan 600 ml. Urine cath x 1. Post void Q6h x 2.
[2018-08-11] MEDS: Clopidogrel Bisulfate 75 MG TAB PO SCH (09:54)
[2018-08-11] MEDS: Ketotifen Fumarate 0.025% Ophth Soln 5 ml Bottle EA EYE SCH ×2 (09:54→21:24)
[2018-08-11] MEDS: Enoxaparin Sodium 40 MG/0.4 ML SYRINGE SC SCH (09:54)
[2018-08-11] MEDS: Furosemide 40 MG/4 ML VIAL SLOW IVP SCH (09:54)
[2018-08-11] MEDS: Folic Acid 1 MG TAB PO SCH (09:54)
[2018-08-11] MEDS: Metoprolol Tartrate 25 MG TAB PO SCH ×2 (09:54→21:24)
[2018-08-11] MEDS: Acetaminophen 325 MG TAB PO PRN ×2 (09:56→21:24)
--- NOTE | 2018-08-11 12:38 | PDOC.PN ---
- Subjective Encounter Start Date: 08/11/18 Encounter Start Time: 12:37 Patient seen and examined, family at bedside, all questions answered. - Objective Resuscitation Status - Order Detail: 08/08/18 00:34 Resuscitation Status Routine Co-Sign Provider: Resuscitation Status: DNAR: NO Resuscitation Discussed with: Family Vital Signs & Weight: Vital Signs (12 hours) Temp Pulse Pulse Pulse Resp BP BP 08/11/18 11:52 97.9 F 74 16 08/11/18 10:48 86 82 130/72 110/66 08/11/18 07:43 99.5 F 84 20 08/11/18 04:00 97.5 F L 79 18 BP Pulse Ox 08/11/18 11:52 102/56 L 93 L 08/11/18 10:48 08/11/18 07:43 146/79 H 92 L 08/11/18 04:00 119/64 94 L Weight Admit Weight 155 lb 9.6 oz Weight 155 lb 9.6 oz I&O: 08/10/18 08/11/18 08/12/18 06:59 06:59 06:59 Intake Total 1025 970 Output Total 1100 2200 Balance -75 -1230 Result Diagrams: 08/10/18 04:32 08/10/18 04:32 Phys Exam - Physical Examination Constitutional: NAD HEENT: PERRLA, moist MMs, sclera anicteric Neck: no nodes, no JVD, supple Respiratory: no wheezing, no rales, no rhonchi Cardiovascular: RRR, no significant murmur, no rub Gastrointestinal: soft, non-tender, no distention Musculoskeletal: pulses present, edema present (trace) Dx/Plan (1) Acute right arterial ischemic stroke, MCA (middle cerebral artery) Code(s): I63.511 - CEREB INFRC D/T UNSP OCCLS OR STENOS OF RIGHT MID CEREB ART Status: Acute (2) COPD (chronic obstructive pulmonary disease) Status: Chronic (3) Carotid atherosclerosis Code(s): I65.29 - OCCLUSION AND STENOSIS OF UNSPECIFIED CAROTID ARTERY Status : Chronic (4) Dyslipidemia Code(s): E78.5 - HYPERLIPIDEMIA, UNSPECIFIED Status: Chronic (5) Hypertension Code(s): I10 - ESSENTIAL (PRIMARY) HYPERTENSION Status: Chronic (6) Obesity (BMI 30.0-34.9) Code(s): E66.9 - OBESITY, UNSPECIFIED Status: Chronic - Plan * hold off on PEG for now, patient swallowing and also walked with PT * check labs in AM * possible DC to rehab or SNF or home PT if patient continues to ambulate as she did today * no other changes in plan of care * case and plan d/w patietn and family at length, they understood and agreed with this plan.
[2018-08-11] MEDS: Melatonin 3 MG TAB PO PRN (21:24)
[2018-08-11] MEDS: Atorvastatin Calcium 40 MG TAB PO SCH (21:24)
[2018-08-12] MEDS ORDERED: Polyethylene Glycol 3350 17 GM Packet PO PRN (08:54)
--- NOTE | 2018-08-12 08:59 | PDOC.PN ---
- Subjective Encounter Start Date: 08/12/18 Encounter Start Time: 08:55 Patient seen and examined, states she feels better, family at bedside, patient states she'd like to walk more today and feels well, no other issues, all questions answered. - Objective Resuscitation Status - Order Detail: 08/08/18 00:34 Resuscitation Status Routine Co-Sign Provider: Resuscitation Status: DNAR: NO Resuscitation Discussed with: Family Vital Signs & Weight: Vital Signs (12 hours) Temp Pulse Resp BP Pulse Ox 08/12/18 03:59 98.1 F 68 19 109/55 L 98 08/12/18 00:00 97.6 F 71 18 112/61 96 08/11/18 21:20 92 L Weight Admit Weight 155 lb 9.6 oz Weight 155 lb 9.6 oz I&O: 08/11/18 08/12/18 08/13/18 06:59 06:59 06:59 Intake Total 970 2105 Output Total 2200 1350 Balance -1230 755 Result Diagrams: 08/10/18 04:32 08/10/18 04:32 Phys Exam - Physical Examination Constitutional: NAD HEENT: PERRLA, moist MMs, sclera anicteric Neck: no nodes, no JVD, supple Respiratory: no wheezing, no rales, no rhonchi Cardiovascular: RRR, no significant murmur, no rub Gastrointestinal: soft, non-tender, no distention, positive bowel sounds Musculoskeletal: pulses present, edema present (trace) Dx/Plan (1) Acute right arterial ischemic stroke, MCA (middle cerebral artery) Code(s): I63.511 - CEREB INFRC D/T UNSP OCCLS OR STENOS OF RIGHT MID CEREB ART Status: Acute (2) COPD (chronic obstructive pulmonary disease) Status: Chronic (3) Carotid atherosclerosis Code(s): I65.29 - OCCLUSION AND STENOSIS OF UNSPECIFIED CAROTID ARTERY Status : Chronic (4) Dyslipidemia Code(s): E78.5 - HYPERLIPIDEMIA, UNSPECIFIED Status: Chronic (5) Hypertension Code(s): I10 - ESSENTIAL (PRIMARY) HYPERTENSION Status: Chronic (6) Obesity (BMI 30.0-34.9) Code(s): E66.9 - OBESITY, UNSPECIFIED Status: Chronic - Plan * cont PT again today * will consult CM to see if patient qualifies for SNF placement * eating well * not had BM, will give miralax * case and plan d/w patient and family at length, they understood and agreed with this plan.
[2018-08-12] MEDS: Enoxaparin Sodium 40 MG/0.4 ML SYRINGE SC SCH (09:32)
[2018-08-12] MEDS: Furosemide 40 MG/4 ML VIAL SLOW IVP SCH (09:32)
[2018-08-12] MEDS: Ketotifen Fumarate 0.025% Ophth Soln 5 ml Bottle EA EYE SCH ×2 (09:32→21:25)
[2018-08-12] MEDS: Metoprolol Tartrate 25 MG TAB PO SCH ×2 (09:32→21:26)
[2018-08-12] MEDS: Clopidogrel Bisulfate 75 MG TAB PO SCH (09:32)
[2018-08-12] MEDS: Folic Acid 1 MG TAB PO SCH (09:33)
[2018-08-12] MEDS: Acetaminophen 325 MG TAB PO PRN (10:14)
[2018-08-12] MEDS: Sodium Chloride 0.9% 1,000 ML IV SCH (17:37)
[2018-08-12] MEDS: Atorvastatin Calcium 40 MG TAB PO SCH (21:25)
[2018-08-12] MEDS: Melatonin 3 MG TAB PO PRN (21:26)
--- NOTE | 2018-08-13 07:34 | PDOC.PN ---
- Subjective Encounter Start Date: 08/13/18 Encounter Start Time: 10:00 Subjective: Patient without events overnight. No complaints this -: morning. Eating a lot on the modified texture diet per family. - Objective Resuscitation Status - Order Detail: 08/08/18 00:34 Resuscitation Status Routine Co-Sign Provider: Resuscitation Status: DNAR: NO Resuscitation Discussed with: Family MAR Reviewed: Yes Vital Signs & Weight: Vital Signs (12 hours) Temp Pulse Resp BP Pulse Ox 08/13/18 05:02 99.0 F 84 16 113/55 L 95 08/13/18 00:31 98.4 F 71 16 107/54 L 100 08/12/18 22:02 96 08/12/18 20:22 98.8 F 86 16 107/52 L 96 Weight Admit Weight 155 lb 9.6 oz Weight 155 lb 9.6 oz I&O: 08/12/18 08/13/18 08/14/18 06:59 06:59 06:59 Intake Total 2105 2153 Output Total 1350 2225 Balance 755 -72 Result Diagrams: 08/10/18 04:32 08/10/18 04:32 Phys Exam - Physical Examination Constitutional: NAD HEENT: moist MMs Respiratory: no wheezing, no rales, no rhonchi Cardiovascular: RRR, no significant murmur Gastrointestinal: soft, non-tender, positive bowel sounds Musculoskeletal: no edema Psychiatric: normal affect Dx/Plan (1) Acute right arterial ischemic stroke, MCA (middle cerebral artery) Code(s): I63.511 - CEREB INFRC D/T UNSP OCCLS OR STENOS OF RIGHT MID CEREB ART Status: Acute (2) Dysphagia Code(s): R13.10 - DYSPHAGIA, UNSPECIFIED Status: Acute Comment: deep penetration on MBS, currently on puree texture diet with honey thick liquids (3) Hypokalemia Code(s): E87.6 - HYPOKALEMIA Status: Acute Comment: replacing (4) COPD (chronic obstructive pulmonary disease) Status: Chronic (5) Dyslipidemia Code(s): E78.5 - HYPERLIPIDEMIA, UNSPECIFIED Status: Chronic (6) Hypertension Code(s): I10 - ESSENTIAL (PRIMARY) HYPERTENSION Status: Chronic (7) Obesity (BMI 30.0-34.9) Code(s): E66.9 - OBESITY, UNSPECIFIED Status: Chronic - Plan cont current plan of care, PT/OT, DVT proph w/SCDs awaiting rehab authorization * . - Discharge Day Encounter end time: 10:20
[2018-08-13] MEDS ORDERED: Potassium Chloride 20 MEQ/100 ML PREMIX BAG IVPB SCH (07:45)
[2018-08-13] MEDS ORDERED: Potassium Chloride 20 MEQ in Premix Bag 1 BAG IVPB SCH (08:30)
[2018-08-13] MEDS ORDERED: Docusate 100 MG CAP PO SCH (09:00)
[2018-08-13] MEDS: Enoxaparin Sodium 40 MG/0.4 ML SYRINGE SC SCH (10:46)
[2018-08-13] MEDS: Ketotifen Fumarate 0.025% Ophth Soln 5 ml Bottle EA EYE SCH (10:46)
[2018-08-13] MEDS: Folic Acid 1 MG TAB PO SCH (10:47)
[2018-08-13] MEDS: Furosemide 40 MG/4 ML VIAL SLOW IVP SCH (10:47)
[2018-08-13] MEDS: Metoprolol Tartrate 25 MG TAB PO SCH (10:47)
[2018-08-13] MEDS: Clopidogrel Bisulfate 75 MG TAB PO SCH (10:47)
[2018-08-13 15:39] VITALS: BP 105/58; TEMP 97.6
[2018-08-13] MEDS: Sodium Chloride 0.9% 1,000 ML IV SCH (16:11)
--- NOTE | 2018-08-14 02:45 | DIS ---
DATE OF ADMISSION: 08/07/2018 DATE OF DISCHARGE: 08/13/2018 PRIMARY CARE PHYSICIAN: Dr. Trujillo in [place], [place]. REASON FOR ADMISSION: Acute ischemic stroke. DIAGNOSES AT DISCHARGE: 1. Acute middle cerebral artery ischemic stroke. 2. Dysphagia. 3. Hypokalemia. 4. Chronic obstructive pulmonary disease. 5. Dyslipidemia. 6. Hypertension. 7. Obesity. PROCEDURES: 1. CT of the brain showing no mass or bleed or other significant acute intracranial process. 2. CT angio of the [place] showing ongoing right MCA distribution stroke secondary to occlusion of the M1 segment of the right middle cerebral artery. 3. MRI of the brain showing a large recent right middle cerebral artery territorial infarction superimposed upon moderate chronic ischemic disease. 4. Echocardiogram showing ejection fraction of 50% to 55%, and atrial fibrillation during this study with elevated right ventricular systolic pressures of 85 mmHg. 5. Carotid Doppler ultrasound showing atherosclerosis, but no significant stenosis of the extracranial internal carotid arteries. 6. Modified barium swallow showing delayed swallowing mechanism evidence of recurrent laryngeal penetration, but no tracheal aspiration. CONSULTATION: Neurology, Dr. Patel. SUMMARY OF HOSPITAL COURSE: This is an 83-year-old female, with a history of hypertension, rheumatoid arthritis, atrial fibrillation, who presented with left-sided weakness, slurred speech and headache. Of note, she is listed to have an allergy to aspirin and Coumadin, so was not given any aspirin. She was evaluated, found to have evidence of a stroke, see CTs as above. The patient was started on Plavix and was transferred to the stroke floor. She was evaluated with above studies. Neurology was consulted. The patient had some improvement during her hospitalization. She was noted to have some deep laryngeal penetration on her swallow study, so she was switched to honey thickened liquids and pureed solids which she did well with. She did have some urinary retention during hospitalization and had to have a Silver placed. On day of discharge, the patient was doing well and is being discharged to inpatient rehabilitation. DISCHARGE MANAGEMENT: Location: Discharged to inpatient rehabilitation. Activity: As tolerated. Diet: Healthy heart, low-sodium diet. Therapies: Occupational, physical, and speech therapies. Equipment: A Silver catheter and oxygen at 2 L. Followup: Follow up with primary care physician after out of rehab. DISCHARGE MEDICATIONS: 1. Acetaminophen as needed. 2. Albuterol inhaler as needed. 3. Atorvastatin 40 mg at night. 4. Natural Tears as needed. 5. Dulcolax suppository as needed. 6. Tums as needed. 7. Cepastat lozenges as needed. 8. Clopidogrel 75 mg daily. 9. Diltiazem 30 mg before meals and at bedtime. 10. Colace 100 mg twice a day. 11. Lovenox 40 mg subcu daily. 12. Folic acid 1 mg daily. 13. DuoNeb as needed. 14. Ketotifen fumarate ophthalmic drops 1 drop in each eye twice a day. 15. Loratadine as needed. 16. Melatonin at night as needed. 17. Metoprolol tartrate 25 mg twice a day. 18. Zofran sublingual as needed. 19. MiraLAX 17 g daily as needed. 20. Senokot-S 2 tablets twice a day as needed. 21. Alendronate 70 mg once a week. 22. Furosemide 40 mg daily. 23. Methotrexate 2.5 mg tablets 4 tablets once a week. Arranging the details of this discharge took 35 minutes. Job ID: [id number]
== END 2018-08-13 19:13 | DRG 65 ==
LOC: ERS 18:44 → 2SE 19:50 → OBSVTOIN 19:50
PROVIDERS: ADMIT Emergency Medicine; ATTEND Emergency Medicine
DX: I63.511 Cerebral infarction due to unspecified occlusion or stenosis of right middle cerebral artery (principal); G81.92 Hemiplegia, unspecified affecting left dominant side; Z66 Do not resuscitate; R47.81 Slurred speech; I10 Essential (primary) hypertension; M06.9 Rheumatoid arthritis, unspecified; J44.9 Chronic obstructive pulmonary disease, unspecified; I48.91 Unspecified atrial fibrillation; R13.10 Dysphagia, unspecified; E78.00 Pure hypercholesterolemia, unspecified; R29.715 NIHSS score 15; I65.29 Occlusion and stenosis of unspecified carotid artery; E66.9 Obesity, unspecified; F03.90 Unspecified dementia, unspecified severity, without behavioral disturbance, psychotic disturbance, mood disturbance, and anxiety; E87.6 Hypokalemia; Z96.642 Presence of left artificial hip joint; Z97.0 Presence of artificial eye; Z88.8 Allergy status to other drugs, medicaments and biological substances; Z79.899 Other long term (current) drug therapy; Z68.33 Body mass index [BMI] 33.0-33.9, adult
CPT/HCPCS: 36415; 36416; 70450; 70496; 70551; 74230; 80048; 80053; 80061; 81003; 81015; 85025; 85610; 85730; 93005; 93306; 93880; 94640; 96360; J1650; J1940; J3480; J7620; Q9966